=== PATIENT | female | born 2000 | race Caucasian/White ===

== ENCOUNTER 2021-12-05 00:05 | Emergency (ER) | payer BC ==
[~2021-12-05] VITALS: Ht 160 cm; Wt 54.4 kg
[2021-12-05 00:24] VITALS: BP_SYST 101
--- NOTE | 2021-12-05 00:29 | NUR ---
Patient triaged and placed in waiting room. VSS and patient appears in no acute distress at this time. Accompanied by SELF, awaiting available bed, and MD notified of need for MSE.
--- NOTE | 2021-12-05 00:30 | NUR ---
WALKED IN C/O BLEEDING FROM NAV[employer] PIERCING THAT WAS DONE TONIGHT AT A [facility]ESSIONAL [facility]. +SATURATED DRESSING NOTED, +CONTROLLED BLEEDING
--- NOTE | 2021-12-05 01:49 | NUR ---
Patient ambulatory to bed 3 for evaluation and treatment
[2021-12-05 03:57] VITALS: BP_SYST 108
== END 2021-12-05 03:57 | disposition home or self-care (01) ==
LOC: SED 00:05
DX: S31.135A Puncture wound of abdominal wall without foreign body, periumbilic region without penetration into peritoneal cavity, initial encounter (principal); Z79.899 Other long term (current) drug therapy; W45.8XXA Other foreign body or object entering through skin, initial encounter; Y93.89 Activity, other specified; Y92.89 Other specified places as the place of occurrence of the external cause; Y99.8 Other external cause status
CPT/HCPCS: 99281